=== PATIENT | female | born 1965 | race Caucasian/White ===

== ENCOUNTER 2017-09-05 12:23 | Emergency (ER) | payer OTHER ==
[~2017-09-05] VITALS: Ht 162.6 cm; Wt 61.9 kg
[2017-09-05 12:24] VITALS: BP 130/80
[2017-09-05 12:57] LABS: HEMATOCRIT 42.7 % (34.6-47.8); HEMOGLOBIN 14.3 g/dL (11.7-16.4); WHITE BLOOD COUNT 5.9 x10^3/uL (3.4-10)
[2017-09-05 13:07] LABS: BLOOD UREA NITROGEN 18 mg/dL (7-18)
[2017-09-05 13:10] LABS: ASPARTATE AMINO TRANSFERASE 31 U/L (15-37)
== END 2017-09-05 14:07 | disposition home or self-care (01) ==
LOC: ED 14:00
DX: N30.01 Acute cystitis with hematuria (principal)
CPT/HCPCS: 36415; 80053; 81003; 85025; 99284

== ENCOUNTER → 2018-02-02 | Outpatient (CLI) | payer OTHER ==
[~2018-02-02] MED LIST: None per pt; ONDA4TAB7 PO; OXYC-302 PO
[2018-02-02 12:01] LABS: BASOPHILS # (AUTO) 0.04 x10^3/uL (0-0.1); BASOPHILS % (AUTO) 1 % (0-1); EOSINOPHILS % (AUTO) 2 % (1-7); LYMPHOCYTES # (AUTO) 2.23 x10^3/uL (1-3.4); LYMPHOCYTES % (AUTO) 45 % (22-44); MD NO; MEAN CORPUSCULAR HEMOGLOBIN 30.4 pg (27.0-34.8); MEAN CORPUSCULAR HGB CONC 33.2 g/dL (32.4-35.8); MEAN CORPUSCULAR VOLUME 91.6 fL (80-100); MEAN PLATELET VOLUME 7.5 fL (7.4-10.4); MONOCYTES # (AUTO) 0.37 x10^3/uL (0.2-0.8); MONOCYTES % (AUTO) 7 % (2-9); NEUTROPHILS # (AUTO) 2.26 x10^3/uL (1.8-6.8); NEUTROPHILS % (AUTO) 45 % (42-75); PLATELET COUNT 196 x10^3/uL (130-400); RED CELL DISTRIBUTION WIDTH 13.2 % (9.6-15.2)
[2018-02-02 13:24] LABS: ALANINE AMINOTRANSFERASE 21 U/L (12-78); ALBUMIN 3.7 g/dL (3.4-5.0); ANION GAP 5 mmol/L (5-15); CALCIUM 8.5 mg/dL (8.5-10.1); CHLORIDE 107 mmol/L (98-107); CREATININE 0.91 mg/dL (0.55-1.02)
[2018-02-02 13:26] LABS: ALKALINE PHOSPHATASE 103 U/L (45-117); BILIRUBIN,TOTAL 0.5 mg/dL (0.2-1.0); TOTAL PROTEIN 7.1 g/dL (6.4-8.2)
== END | disposition home or self-care (01) ==
LOC: STAR 10:43
PROVIDERS: ATTEND Specialist
DX: Z01.812 Encounter for preprocedural laboratory examination (principal); Z85.9 Personal history of malignant neoplasm, unspecified
CPT/HCPCS: 36415; 71046; 80053; 85025; 93005

== ENCOUNTER 2018-02-06 10:47 | Inpatient (IN) | payer OTHER ==
[~2018-02-06] VITALS: Ht 162.6 cm; Wt 62.5 kg
[~2018-02-06 10:47] MED LIST changes: -ONDA4TAB7 PO; -OXYC-302 PO
[2018-02-06] MEDS ORDERED: LACTATED RINGERS 1,000 ML IV SCH (12:06)
[2018-02-06 12:12] VITALS: BP 134/84
[2018-02-06 13:09] LABS: HCG UR SG 1.026 (1.003-1.030)
[2018-02-06] MEDS ORDERED: MIDAZOLAM 1 MG/ML, 2ML ONE (14:12)
[2018-02-06] MEDS ORDERED: FENTANYL PF 250 MCG/5ML ONE (14:12)
[2018-02-06] MEDS ORDERED: ONDANSETRON 2MG/ML, 2ML ONE (15:04)
[2018-02-06] MEDS ORDERED: CEFAZOLIN 1,000 MG ONE (15:04)
[2018-02-06] MEDS ORDERED: PROPOFOL 10 MG/ML, 20ML ONE (15:04)
[2018-02-06] MEDS ORDERED: DEXAMETHASONE 4 MG/ML, 1ML ONE (15:04)
[2018-02-06] MEDS ORDERED: ROCURONIUM 10 MG/ML,10ML ONE (15:04)
[2018-02-06] MEDS ORDERED: LABETALOL 5MG/ML, 20ML ONE (15:04)
[2018-02-06] MEDS ORDERED: SUCCINYLCHOLINE 20 MG/ML, 10ML ONE (15:04)
[2018-02-06] MEDS ORDERED: BUPIVACAINE/PF 0.25% INFIL ONE (15:53)
[2018-02-06] MEDS ORDERED: METOCLOPRAMIDE 5 MG/ML, 2ML IV PRN (17:00)
[2018-02-06] MEDS ORDERED: morphine SULFATE 10 MG/ML, 1ML IV PRN (17:00)
[2018-02-06] MEDS ORDERED: FENTANYL PF 100 MCG/2ML IV PRN (17:00)
[2018-02-06] MEDS ORDERED: LABETALOL 5MG/ML, 20ML IV PRN (17:00)
[2018-02-06] MEDS ORDERED: hydrALAzine 20 MG/ML, 1ML IV PRN (17:00)
[2018-02-06] MEDS ORDERED: HYDROcodone/APAP 7.5-325MG/15ML UDC PO PRN (17:00)
[2018-02-06] MEDS ORDERED: MEPERIDINE/PF 25MG/0.5ML IVPush PRN (17:00)
[2018-02-06] MEDS ORDERED: ALBUTEROL/IPRATROPIUM 2.5MG/0.5MG, 3 ML NPPB PRN (17:00)
[2018-02-06] MEDS ORDERED: PROMETHAZINE 25 MG/ML, 1ML IV PRN (17:00)
[2018-02-06] MEDS ORDERED: ALBUTEROL SULFATE 2.5 MG/3 ML NPPB PRN (17:00)
[2018-02-06] MEDS ORDERED: ONDANSETRON 2MG/ML, 2ML IVPush PRN (17:00)
[2018-02-06] MEDS ORDERED: HYDROmorphone 1 MG/ML, 1ML IV PRN (17:00)
[2018-02-06] MEDS ORDERED: HEPARIN 1,000 UNITS/ML, 10ML IV ONE (18:02)
[2018-02-06] MEDS ORDERED: HEPARIN 1,000 UNITS/ML, 10ML ONE (18:10)
[2018-02-06] MEDS ORDERED: KETOROLAC 30 MG/1 ML ONE (18:46)
[2018-02-06] MEDS ORDERED: OXYcodone 5 MG/5 ML ORAL.SOL UDC ONE (18:50)
[2018-02-06] MEDS ORDERED: OXYcodone 5 MG/5 ML ORAL.SOL UDC PO PRN (19:00)
[2018-02-06] MEDS ORDERED: KETOROLAC 30 MG/1 ML IV PRN (19:00)
[2018-02-06] MEDS ORDERED: MORPHINE SULFATE 4 MG/ML, 1ML ONE (19:37)
[2018-02-06] MEDS ORDERED: PROMETHAZINE 25 MG/ML, 1ML ONE (19:48)
[2018-02-07 00:09] VITALS: BP 151/73
[2018-02-07 03:54] VITALS: BP 125/62
[2018-02-07] MEDS ORDERED: OXYC-302 PO (04:19)
[2018-02-07] MEDS ORDERED: ONDA4TAB7 PO (04:21)
[2018-02-07 06:45] VITALS: BP 130/76
[2018-02-07 08:52] VITALS: BP 124/71
== END 2018-02-07 09:30 | disposition home or self-care (01) | DRG 738 ==
LOC: OUT 10:47 → 4NOR 19:59 → OUT 23:32 → 4NOR 23:32
PROVIDERS: ADMIT Specialist; ATTEND Specialist
PROC: 0UT94ZZ Resection of Uterus, Percutaneous Endoscopic Approach (ICD-10-PCS; 2018-02-06)
PROC: 0UT64ZZ Resection of Left Fallopian Tube, Percutaneous Endoscopic Approach (ICD-10-PCS; 2018-02-06)
PROC: 07BD4ZZ Excision of Aortic Lymphatic, Percutaneous Endoscopic Approach (ICD-10-PCS; 2018-02-06)
PROC: 0DBU4ZZ Excision of Omentum, Percutaneous Endoscopic Approach (ICD-10-PCS; 2018-02-06)
PROC: 0T778DZ Dilation of Left Ureter with Intraluminal Device, Via Natural or Artificial Opening Endoscopic (ICD-10-PCS; 2018-02-06)
PROC: 8E0W4CZ Robotic Assisted Procedure of Trunk Region, Percutaneous Endoscopic Approach (ICD-10-PCS; 2018-02-06)
PROC: 0UT14ZZ Resection of Left Ovary, Percutaneous Endoscopic Approach (ICD-10-PCS; principal; 2018-02-06 15:00)
DX: D39.11 Neoplasm of uncertain behavior of right ovary (principal); N85.8 Other specified noninflammatory disorders of uterus
CPT/HCPCS: 36415; 81025; 86850; 86900; 86923; 88112; 88305; 88307; J0690; J1100; J1644; J1885; J2250; J2405; J2550; J2704; J3010; J3490; C1769; C2617; J0330; J2270; J7120

== ENCOUNTER 2018-02-10 16:14 | Emergency (ER) | payer OTHER ==
[~2018-02-10] VITALS: Ht 162.6 cm; Wt 63.3 kg
[~2018-02-10 16:14] MED LIST changes: +ONDA4TAB7 PO; +OXYC-302 PO
[2018-02-10] MEDS ORDERED: SULF1TAB23 PO (17:09)
[2018-02-10 17:14] LABS: BASOPHILS # (AUTO) 0.01 x10^3/uL (0-0.1); BASOPHILS % (AUTO) 0 % (0-1); EOSINOPHILS % (AUTO) 4 % (1-7); LYMPHOCYTES # (AUTO) 1.37 x10^3/uL (1-3.4); LYMPHOCYTES % (AUTO) 25 % (22-44); MD NO; MEAN CORPUSCULAR HEMOGLOBIN 30.8 pg (27.0-34.8); MEAN CORPUSCULAR HGB CONC 33.6 g/dL (32.4-35.8); MEAN CORPUSCULAR VOLUME 91.6 fL (80-100); MEAN PLATELET VOLUME 7.1 fL (7.4-10.4); MONOCYTES # (AUTO) 0.45 x10^3/uL (0.2-0.8); MONOCYTES % (AUTO) 8 % (2-9); NEUTROPHILS # (AUTO) 3.38 x10^3/uL (1.8-6.8); NEUTROPHILS % (AUTO) 63 % (42-75); PLATELET COUNT 205 x10^3/uL (130-400); RED BLOOD COUNT 4.03 x10^6/uL (3.82-5.3); RED CELL DISTRIBUTION WIDTH 12.9 % (9.6-15.2)
[2018-02-10 17:22] LABS: ALBUMIN 2.9 g/dL (3.4-5.0); ANION GAP 6 mmol/L (5-15); CALCIUM 8.2 mg/dL (8.5-10.1); CHLORIDE 102 mmol/L (98-107); CREATININE 0.77 mg/dL (0.55-1.02)
[2018-02-10 18:00] LABS: MICROSCOPIC INDICATED
[2018-02-10 18:02] LABS: CULTURE INDICATED? YES
[2018-02-10] MEDS ORDERED: OMNIPAQUE 350 MG/ML, 100ML BOTTLE ONE (19:19)
[2018-02-10 19:36] VITALS: BP 108/58
== END 2018-02-10 21:36 | disposition home or self-care (01) ==
LOC: ED 21:28
DX: K56.0 Paralytic ileus (principal); R10.32 Left lower quadrant pain; G89.18 Other acute postprocedural pain; Z90.710 Acquired absence of both cervix and uterus
CPT/HCPCS: 36415; 74021; 74177; 80048; 81001; 82040; 85025; 87086; 99285; Q9967

== ENCOUNTER 2018-03-07 14:09 | Emergency (ER) | payer OTHER ==
[~2018-03-07] VITALS: Ht 161.3 cm; Wt 62.8 kg
[~2018-03-07 14:09] MED LIST changes: +SULF1TAB23 PO
[2018-03-07] MEDS ORDERED: METOCLOPRAMIDE 5 MG/ML, 2ML IVPush ONE (14:30)
[2018-03-07] MEDS ORDERED: SODIUM CHLORIDE FLUSH 10ML SYR IVF ONE (14:30)
[2018-03-07] MEDS ORDERED: MORPHINE SULFATE 4 MG/ML, 1ML IVPush PRN (14:30)
[2018-03-07] MEDS ORDERED: MORPHINE SULFATE 4 MG/ML, 1ML ONE (14:42)
[2018-03-07] MEDS ORDERED: METOCLOPRAMIDE 5 MG/ML, 2ML ONE (14:42)
[2018-03-07 15:05] LABS: ALANINE AMINOTRANSFERASE 26 U/L (12-78); ALBUMIN 3.4 g/dL (3.4-5.0); ANION GAP 10 mmol/L (5-15); CALCIUM 8.7 mg/dL (8.5-10.1); CHLORIDE 105 mmol/L (98-107); CREATININE 0.77 mg/dL (0.55-1.02)
[2018-03-07 15:07] LABS: ALKALINE PHOSPHATASE 121 U/L (45-117); BASOPHILS # (AUTO) 0.05 x10^3/uL (0-0.1); BASOPHILS % (AUTO) 1 % (0-1); BILIRUBIN,TOTAL 0.3 mg/dL (0.2-1.0); EOSINOPHILS % (AUTO) 6 % (1-7); LYMPHOCYTES # (AUTO) 2.23 x10^3/uL (1-3.4); LYMPHOCYTES % (AUTO) 26 % (22-44); MD NO; MEAN CORPUSCULAR HEMOGLOBIN 29.9 pg (27.0-34.8); MEAN CORPUSCULAR HGB CONC 33.4 g/dL (32.4-35.8); MEAN CORPUSCULAR VOLUME 89.4 fL (80-100); MEAN PLATELET VOLUME 7.6 fL (7.4-10.4); MONOCYTES # (AUTO) 0.66 x10^3/uL (0.2-0.8); MONOCYTES % (AUTO) 8 % (2-9); NEUTROPHILS % (AUTO) 60 % (42-75); PLATELET COUNT 196 x10^3/uL (130-400); RED BLOOD COUNT 4.41 x10^6/uL (3.82-5.3); RED CELL DISTRIBUTION WIDTH 13.1 % (9.6-15.2); TOTAL PROTEIN 6.6 g/dL (6.4-8.2)
[2018-03-07 15:32] LABS: CULTURE INDICATED? YES; MICROSCOPIC INDICATED
[2018-03-07 15:53] VITALS: BP 146/79
== END 2018-03-07 17:00 | disposition home or self-care (01) ==
LOC: ED 16:55
DX: R31.29 Other microscopic hematuria (principal)
CPT/HCPCS: 36415; 74018; 80053; 81001; 85025; 87086; 96374; 96375; 99285; J2765